=== PATIENT | female | born 1985 | race Caucasian/White ===

== ENCOUNTER 2017-05-10 01:39 | Emergency (ER) | payer OTHER ==
[~2017-05-10] VITALS: Ht 165.1 cm; Wt 99.3 kg
[2017-05-10] MEDS ORDERED: VALIUM5 MG PO (02:01)
[2017-05-10] MEDS ORDERED: TOPAMAX200 MG PO (02:01)
[2017-05-10] MEDS ORDERED: CLONIDINE HCL0.1 M1 PO (02:02)
[2017-05-10] MEDS ORDERED: TESSALON PERLE100 M1 PO (02:28)
[2017-05-10] MEDS ORDERED: TRAMADOL 50 MG50 MG PO (02:28)
[2017-05-10] MEDS ORDERED: PREDNISONE 20 M20 MG PO (02:28)
== END 2017-05-10 03:13 | disposition home or self-care (01) ==
LOC: ER 01:39
DX: J40 Bronchitis, not specified as acute or chronic (principal); R07.89 Other chest pain; F17.210 Nicotine dependence, cigarettes, uncomplicated